=== PATIENT | female | born 1950 | race Caucasian/White ===

== ENCOUNTER 2016-10-30 14:05 | Observation (INO) | payer OTHER ==
[2016-11-01] MEDS ORDERED: CONCERTA27 MG PO (15:55)
[2016-11-01] MEDS ORDERED: ZOFRAN4 MG PO (15:56)
[2016-11-01] MEDS ORDERED: ZOLOFT DPS25 MG PO (15:56)
[2016-11-01] MEDS ORDERED: ANTIVERT-DPS25 MG PO (15:56)
[2016-11-01] MEDS ORDERED: XANAX DPS0.25 MG PO (15:57)
--- NOTE | 2016-11-04 11:58 | HP ---
ADMIT: 10/30/2016 RM/LOC: [address] [facility] MR#: [id number] [facility] [address] [place] [id number] CASSIA MCGRATH [address] [place] [address] [place] [address] History and Physical SEX: F AGE: 66 : 1950 DATE OF SERVICE: CHIEF COMPLAINT: Vomiting, diarrhea, and dizziness. HISTORY OF PRESENT ILLNESS: Cassia is a 66-year-old, white female, admitted to [facility] through the [facility] after presenting with a 12-36 hour history of vomiting and diarrhea with dizziness and lightheadedness to the point she cannot stand up. She denies any chest pain, shortness of breath, or major abdominal pain. She states she just was vomiting and having diarrhea. She states she has only had diarrhea three times total. She states she is so dizzy, she can hardly move. PAST MEDICAL HISTORY: Includes prior retinal tear repair, cataract surgery, and a benign gland in her neck. Illnesses include depression, hyperlipidemia, atrophic vaginitis, and adult ADHD, mainly inattentive type/ADD. MEDICATIONS: On admission include: 1. Aspirin 81 mg. 2. Sertraline 50 mg daily. 3. Xanax 0.25 mg t.i.d. ALLERGIES: INCLUDE PENICILLIN. SOCIAL HISTORY: Is that of a 66-year-old female. She does not currently smoke and rarely drinks. FAMILY HISTORY: Remarkable for colon cancer in a first degree relative. She had a normal colonoscopy around 2010. REVIEW OF SYSTEMS: Remarkable for dizziness, lightheadedness, recurrent nausea and vomiting along with episodes of diarrhea. Remainder of review of systems is negative. PHYSICAL EXAMINATION: VITAL SIGNS: Include blood pressure 138/70, with pulse 64, temperature 97.5, weight of 160 pounds, and sat 98% on room air. GENERAL: Exam shows her to be alert. She is curled up in the position, sitting in wheelchair, holding her head with her eyes closed. She states she does not want to open her eyes or move as she gets dizzy. HEENT: On exam, pupils are reactive. TMs normal. Membranes are moist. Lips are dry. NECK: Without nodes or masses. HEART: Regular without murmur. LUNGS: Clear. ABDOMEN: Soft, nontender, benign. No hepatosplenomegaly. BREASTS: Deferred. GENITOURINARY: Deferred. RECTAL: Deferred. EXTREMITIES: Reveal no clubbing, cyanosis, or edema. ADMIT: 10/30/2016 RM/LOC: 628 [facility] MR#: [id number] [id number] [place] [address] History and Physical SEX: F AGE: 66 : 1950 LABORATORY DATA: Labs done at [facility] include a CBC, BMP, and UA which are for the most part unremarkable. ASSESSMENT: Viral syndrome with gastroenteritis and labyrinthitis. Other problems include adult attention deficit disorder, depression, mild hyperlipidemia, atrophic vaginitis. PLAN: We will admit her for IV fluids, electrolytes, antiemetics, and meclizine. We will proceed with further evaluation and management based on course during hospitalization. Please see her hospital record for the details. Lenin Brandt MD/ ilene JOB #: [id number] CC: Lenin Brandt, Attending Physician Lenin Brandt, Family Physician
== END 2016-10-31 10:00 | disposition home or self-care (01) ==
LOC: 6PED 14:05
PROVIDERS: ADMIT Family Medicine
DX: A08.4 Viral intestinal infection, unspecified (principal); H83.09 Labyrinthitis, unspecified ear; E78.5 Hyperlipidemia, unspecified; F32.9 Major depressive disorder, single episode, unspecified; N95.2 Postmenopausal atrophic vaginitis; F90.9 Attention-deficit hyperactivity disorder, unspecified type; Z79.82 Long term (current) use of aspirin; Z98.890 Other specified postprocedural states; Z88.0 Allergy status to penicillin; Z79.899 Other long term (current) drug therapy